=== PATIENT | male | born 1940 | race Two or more races ===

== ENCOUNTER 2017-09-04 07:36 | Inpatient (IN) | payer OTHER ==
[~2017-09-04] VITALS: Ht 182.9 cm; Wt 79.8 kg
[~2017-09-04 07:36] MED LIST: Aspirin Chewable PO; Bactrim,Septra DS 80 PO; FINASTERIDE5 MG PO; NORCO 5/3251 TABLET PO; Vicodin,Norco 5/325 PO
[2017-09-04 08:54] LABS: HEMATOCRIT 46.4 % (38.0-50.0); HEMOGLOBIN 15.9 G/DL (12.5-16.6); MCH 30.2 PG (29.0-34.0); MCHC 34.3 G/DL (30.0-36.0); MCV 88.2 FL (86-99); PLATELET COUNT 254 K/uL (156-360); RBC DIS.WIDTH-SD 42.2 % (39-53); RED BLOOD COUNT 5.26 M/uL (4.00-5.50); WHITE BLOOD COUNT 13.2 K/uL (4.1-10.2)
[2017-09-04 09:02] LABS: ALBUMIN 4.4 g/dL (3.2-4.8); CHLORIDE 104 mEq/L (99-109); SODIUM 138 mEq/L (136-147)
[2017-09-04 09:04] LABS: GLUCOSE 208 mg/dL (70-99); TOTAL PROTEIN 7.8 g/dL (6.4-8.3)
[2017-09-04 09:06] LABS: TOTAL BILIRUBIN 6.8 mg/dL (0.0-1.0)
[2017-09-04 09:08] LABS: ALKALINE PHOSPHATASE 304 IU/L (3-129); CREATININE 0.9 mg/dL (0.6-1.3); GFR ESTIMATE (CALCULATED) > 59 mL/min/ (58.99-99999)
[2017-09-04 09:09] LABS: AST (GOT) 165 IU/L (2-34); UREA NITROGEN (BUN) 24 mg/dL (9-23)
[2017-09-04 09:11] LABS: ALT (GPT) 201 IU/L (3-49); LIPASE 644 U/L (1.0-51.0)
[2017-09-04] MEDS ORDERED: GLUCOPHAGE500 MG PO (11:59)
[2017-09-04] MEDS ORDERED: ALEVE220 MG PO (11:59)
[2017-09-04] MEDS ORDERED: FLOMAX0.4 MG PO (11:59)
[2017-09-04] MEDS ORDERED: LO-DOSE ASPIRIN81 M1 PO (11:59)
[2017-09-04 12:47] LABS: PTT 29.4 SEC (25-37)
[2017-09-04 19:15] VITALS: BP 124/65
[2017-09-04 23:23] VITALS: BP 108/59
[2017-09-05 03:45] VITALS: BP 102/56
[2017-09-05 06:32] LABS: ALBUMIN 2.6 G/DL (3.2-4.8); ALKALINE PHOSPHATASE 154 IU/L (3-129); ALT (GPT) 79 IU/L (3-49); AST (GOT) 45 IU/L (2-34); CHLORIDE 108 MEQ/L (99-109); CREATININE 0.7 MG/DL (0.6-1.3); GFR ESTIMATE (CALCULATED) > 59 mL/min/ (58.99-99999); GLUCOSE 195 mg/dL (70-99); LIPASE 21 U/L (1.0-51.0); POTASSIUM 3.8 MEQ/L (3.7-5.4); SODIUM 140 MEQ/L (136-147); TOTAL BILIRUBIN 2.6 MG/DL (0.0-1.0); TOTAL PROTEIN 4.6 G/DL (6.4-8.3); UREA NITROGEN (BUN) 20 mg/dL (9-23)
[2017-09-05 07:13] LABS: HEMATOCRIT 36.8 % (38.0-50.0); MCH 29.3 PG (29.0-34.0); MCHC 33.2 G/DL (30.0-36.0); MCV 88.5 FL (86-99); PLATELET COUNT 179 K/uL (156-360); RBC DIS.WIDTH-CV 13.3 % (11.8-14.6); RBC DIS.WIDTH-SD 43.5 % (39-53)
[2017-09-05 07:23] LABS: HEMOGLOBIN 12.2 G/DL (12.5-16.6); RED BLOOD COUNT 4.16 M/uL (4.00-5.50)
[2017-09-05 08:00] VITALS: BP 113/55
[2017-09-05 11:33] VITALS: BP 110/59
[2017-09-05 16:30] VITALS: BP 123/61
[2017-09-05 19:08] VITALS: BP 115/67
[2017-09-05 23:10] VITALS: BP 123/69
[2017-09-06 03:45] VITALS: BP 145/67
[2017-09-06 06:07] LABS: ALBUMIN 2.6 G/DL (3.2-4.8); ALKALINE PHOSPHATASE 143 IU/L (3-129); ALT (GPT) 56 IU/L (3-49); DIRECT BILIRUBIN 0.5 mg/dL (0.0-0.3); LIPASE 23 U/L (1.0-51.0); TOTAL PROTEIN 4.5 G/DL (6.4-8.3)
[2017-09-06 06:10] LABS: AST (GOT) 22 IU/L (2-34); TOTAL BILIRUBIN 1.2 MG/DL (0.0-1.0)
[2017-09-06 07:17] VITALS: BP 149/67
[2017-09-06 08:37] LABS: HEMATOCRIT 35.5 % (38.0-50.0); HEMOGLOBIN 12.1 G/DL (12.5-16.6); MCH 30.6 PG (29.0-34.0); MCHC 34.1 G/DL (30.0-36.0); MCV 89.9 FL (86-99); PLATELET COUNT 153 K/uL (156-360); RBC DIS.WIDTH-CV 13.4 % (11.8-14.6); RBC DIS.WIDTH-SD 44.4 % (39-53); RED BLOOD COUNT 3.95 M/uL (4.00-5.50); WHITE BLOOD COUNT 8.8 K/uL (4.1-10.2)
[2017-09-06 11:56] VITALS: BP 147/75
[2017-09-06 16:45] VITALS: BP 151/69
[2017-09-06 16:50] VITALS: BP 151/69
[2017-09-06 19:20] VITALS: BP 153/68
[2017-09-06 20:45] LABS: CREATININE 0.7 MG/DL (0.6-1.3); GFR ESTIMATE (CALCULATED) > 59 mL/min/ (58.99-99999); UREA NITROGEN (BUN) 19 mg/dL (9-23)
[2017-09-07 00:04] VITALS: BP 127/66
[2017-09-07 04:45] VITALS: BP 125/61
[2017-09-07 05:57] LABS: HEMATOCRIT 37.7 % (38.0-50.0); HEMOGLOBIN 12.6 G/DL (12.5-16.6); MCH 29.6 PG (29.0-34.0); MCHC 33.4 G/DL (30.0-36.0); MCV 88.7 FL (86-99); RBC DIS.WIDTH-CV 13.2 % (11.8-14.6); RED BLOOD COUNT 4.25 M/uL (4.00-5.50); WHITE BLOOD COUNT 7.9 K/uL (4.1-10.2)
[2017-09-07 05:59] LABS: PLATELET COUNT 204 K/uL (156-360)
[2017-09-07 06:24] LABS: ALBUMIN 2.5 G/DL (3.2-4.8); ALKALINE PHOSPHATASE 133 IU/L (3-129); ALT (GPT) 47 IU/L (3-49); AST (GOT) 22 IU/L (2-34); CHLORIDE 109 MEQ/L (99-109); CREATININE 0.7 MG/DL (0.6-1.3); GFR ESTIMATE (CALCULATED) > 59 mL/min/ (58.99-99999); GLUCOSE 211 mg/dL (70-99); POTASSIUM 4.3 MEQ/L (3.7-5.4); SODIUM 139 MEQ/L (136-147); TOTAL BILIRUBIN 1.1 MG/DL (0.0-1.0); TOTAL PROTEIN 4.5 G/DL (6.4-8.3); UREA NITROGEN (BUN) 15 mg/dL (9-23)
[2017-09-07] MEDS ORDERED: NORCO 5/3251 TABLET PO (07:40)
[2017-09-07] MEDS ORDERED: LEVAQUIN750 MG PO (07:40)
[2017-09-07 08:42] VITALS: BP 160/75
[2017-09-07] MEDS ORDERED: ZOFRAN8 MG PO (10:14)
[2017-09-07] MEDS ORDERED: COLACE100 MG PO (10:14)
== END 2017-09-07 12:15 | disposition home or self-care (01) | DRG 853 ==
LOC: EME 07:36 → 4EAST 11:40 → EDOF 11:40 → ENRESERV 11:43 → EDOF 14:41 → ENRESERV 14:44 → 4EAST 19:21 → ENRESERV 09-06 13:53 → 5WEST 09-06 16:30
PROVIDERS: Emergency Medicine; Family Medicine; Surgery
DX: A41.51 Sepsis due to Escherichia coli [E. coli] (principal); K80.63 Calculus of gallbladder and bile duct with acute cholecystitis with obstruction; K85.90 Acute pancreatitis without necrosis or infection, unspecified; I10 Essential (primary) hypertension; R00.1 Bradycardia, unspecified; N40.0 Benign prostatic hyperplasia without lower urinary tract symptoms; E11.9 Type 2 diabetes mellitus without complications; K57.10 Diverticulosis of small intestine without perforation or abscess without bleeding; Z79.84 Long term (current) use of oral hypoglycemic drugs
CPT/HCPCS: 71045; 74177; 74328; 76705; 80053; 80076; 81003; 82565; 82948; 83605; 83690; 84520; 85027; 85610; 85730; 87040; 87077; 87081; 87186; 87801; 88108; 88304; 88305; 99281; 99285; C1769; C9113; J0295; J0690; J0692; J0696; J1100; J1815; J2250; J2270; J2405; J2710; J3010; J7030; J7050

== ENCOUNTER 2018-02-21 18:26 | Emergency (ER) | payer OTHER ==
[~2018-02-21] VITALS: Ht 172.7 cm; Wt 79.4 kg
[~2018-02-21 18:26] MED LIST changes: +ALEVE220 MG PO; +COLACE100 MG PO; +FLOMAX0.4 MG PO; +GLUCOPHAGE500 MG PO; +LEVAQUIN750 MG PO; +LO-DOSE ASPIRIN81 M1 PO; +ZOFRAN8 MG PO
[2018-02-21] MEDS ORDERED: MOTRIN600 MG PO (22:52)
[2018-02-21] MEDS ORDERED: NORCO 5/3251 TABLET PO (22:52)
[2018-02-21 23:48] VITALS: BP 145/72
== END 2018-02-21 23:50 | disposition home or self-care (01) ==
LOC: EME 18:26
PROC: 09C1XZZ Extirpation of Matter from Left External Ear, External Approach (ICD-10-PCS; principal; 2018-02-21)
DX: S20.212A Contusion of left front wall of thorax, initial encounter (principal); W18.30XA Fall on same level, unspecified, initial encounter; H61.22 Impacted cerumen, left ear; I44.0 Atrioventricular block, first degree; E11.9 Type 2 diabetes mellitus without complications; Z79.84 Long term (current) use of oral hypoglycemic drugs; Z79.82 Long term (current) use of aspirin
CPT/HCPCS: 71046; 93005; 99281; 99284